=== PATIENT | male | born 1995 | race Caucasian/White ===

== ENCOUNTER 2023-09-23 19:20 | Emergency (ER) | payer BC ==
[2023-09-23] MEDS ORDERED: Sodium Chloride 0.9% 10 ML Syringe FLUSH PRN (19:46)
[2023-09-23 20:28] LABS: WHITE BLOOD CELL COUNT,WBC 5.41 K/mm3 (3.9-11.3)
[2023-09-23 20:29] LABS: HEMOGLOBIN 16.1 gm/dl (14.0-18.0); MEAN CORPUSCULAR HEMOGLOBIN 29.1 pg (28.0-32.0); MEAN CORPUSCULAR HGB CONC 35.8 g/dl (32.0-36.0); MEAN CORPUSCULAR VOLUME 81.4 fl (83.0-99.0); NEUTROPHILS PERCENT AUTO 74.5 % (41.0-71.0); PLATELET COUNT,PLT 290 K/mm3 (150-400); RED BLOOD CELL COUNT 5.53 M/mm3 (4.52-5.90)
[2023-09-23 20:30] LABS: BASOPHILS PERCENT AUTO 0.2 % (0.0-1.0); IMMATURE GRAN ABSOLUTE AUTO 0.01 K/mm3 (0.00-0.05); IMMATURE GRAN PERCENT AUTO 0.2 % (0.0-0.4); MONOCYTES ABSOLUTE AUTO 0.3 K/mm3 (0.0-0.8); MONOCYTES PERCENT AUTO 6.1 % (0.0-8.0)
[2023-09-23 20:38] LABS: D-DIMER QUANTITATIVE 0.19 mg/L (0.19-0.50); INR 0.98; PROTHROMBIN TIME 10.5 SECONDS (9.7-12.0)
[2023-09-23 21:19] LABS: ANION GAP 17.1 (5-15); BLOOD UREA NITROGEN,BUN 12 mg/dL (7-18); CALCIUM 9.7 mg/dL (8.5-10.1); CARBON DIOXIDE,CO2 25 mEq/L (21-32); CHLORIDE,CL 99 mEq/L (98-107); CREATININE 1.2 mg/dL (0.7-1.3); EST CRCL DRUG DOSING (CG) 93.64 mL/min; ESTIMATED GFR 86 mL/min (>60); GLUCOSE RANDOM 169 mg/dL (70-99); POTASSIUM,K 4.1 mEq/L (3.5-5.1); SODIUM,NA 137 mEq/L (136-145)
[2023-09-23 21:20] LABS: A/G RATIO 0.9 (1-2); ALANINE AMINOTRANSFERASE,ALT 17 U/L (16-63); ALBUMIN 4.2 g/dl (3.4-5.0); ALKALINE PHOSPHATASE 56 U/L (46-116); ASPARTATE AMNIOTRANSFERASE,AST 15 U/L (15-37); BILIRUBIN TOTAL 0.4 mg/dL (0.2-1.0); MAGNESIUM 1.7 mg/dL (1.8-2.4); PROTEIN TOTAL,TP 8.7 g/dl (6.4-8.2); TROPONIN I HIGH SENSITIVITY < 4 pg/mL (<=76)
== END 2023-09-23 22:53 | disposition home or self-care (01) ==
LOC: JD.ED 19:20
DX: J10.1 Influenza due to other identified influenza virus with other respiratory manifestations (principal)
CPT/HCPCS: 36415; 71045; 80053; 83735; 84484; 85025; 85379; 85610; 85652; 86140; 93005; 99284; J3490; 93010; 99282